=== PATIENT | male | born 1990 | race Two or more races ===

== ENCOUNTER 2019-10-09 14:14 | Emergency (ER) | payer SELFPAY ==
[~2019-10-09] VITALS: Ht 177.8 cm; Wt 97.5 kg
[~2019-10-09 14:14] MED LIST: CYCLOBENZAPRINE10 MG ORAL; IBUPROFEN600 MG ORAL
[2019-10-09 14:25] VITALS: BP 120/77
[2019-10-09] MEDS ORDERED: DiphenhydrAMINE 50mg/ml Inj IVP ONE (14:30)
[2019-10-09] MEDS ORDERED: Ketorolac 30mg Inj IV ONE (14:30)
[2019-10-09] MEDS ORDERED: Metoclopramide 10mg/2ml Inj IVP ONE (14:30)
--- NOTE | 2019-10-09 14:32 | Emergency Room Report ---
History of Present Illness General Chief Complaint: Headache Source: Patient Present Illness HPI Disclaimer: Please note that this report is being documented using [employer] technology. This can lead to erroneous entry secondary to incorrect interpretation by the dictating instrument. HPI: Otherwise healthy 29-year-old male presents for evaluation of headache, fatigue diarrhea and fevers. Symptoms present 2 to 3 days. He denies any known sick contacts. He reports slight cough, subjective fevers, chills, fatigue. He still able to eat and drink though notes a decreased appetite. Denies changes in smell or taste. Reports loose stools over the past 3 days. Reports generalized fatigue. Came in because of a generalized headache without associated vertigo, lightheadedness, vision changes, numbness, tingling, weakness. Denies neck or back pain. Does not endorse any neck stiffness. Denies dysuria, hematuria, vomiting. Denies rash. PMH: Denies PSH: Denies Allergies: Denies Social Hx: Former alcohol and tobacco use. Allergies: Coded Allergies: No Known Allergies (Unverified , 06/27/15) COVID-19 Screening Contact w/high risk pt: No Recent Travel to affected area: No Experienced COVID-19 symptoms?: No COVID-19 Testing performed FENCE [employer]ER: No Nursing Documentation-PMH Past Medical History: No Stated History Review of Systems All Other Systems: negative except mentioned in HPI Physical Exam Vital Signs Date Time Temp Pulse Resp B/P (MAP) Pulse Ox O2 Delivery O2 Flow Rate FiO2 10/09/19 14:18 101.7 116 18 120/77 (91) 96 Room Air General: Awake and alert, febrile, HEENT: NC/AT. EOMI. PERRLA. Visual holcomb are full. No nystagmus. Facial expressions are symmetrical. No facial droop. Cardiovascular: Tachycardic. S1 and S2 normal. No murmur appreciated Resp: Normal work of breathing. No cough, wheezing or crackles appreciated Abdomen: Abdomen is soft, nondistended. Nontender Skin: Intact. No abrasions, laceration or rash over the exposed skin MSK: Normal tone and bulk. Moving all extremities. No obvious deformity. There is no drift in the upper or lower extremities bilaterally. Neuro: Awake and alert. Mentating appropriately. Facial expression symmetrical. No dysarthria. The patient has intact speech with good repetition , comprehension. Fund of knowledge is full. Medical Decision Making Diagnostic Impression: Primary Impression: Suspected 2019 novel coronavirus infection Additional Impression: Headache ER Course Is a 29-year-old male presenting for evaluation of generalized headache, fatigue and diarrhea for the past 3 days. Differential includes was not limited to viral syndrome, flu Unser, COVID-19, pneumonia, bronchitis, gastritis , gastroenteritis, food poisoning, dehydration, electrolyte abnormality. No trauma was reported. The patient is neurologically intact. Little clinical concern for occupying mass, intracranial bleed, meningitis or other significant intracranial pathology at this time. Do not believe he requires emergent imaging at this time. Patient arrives febrile and tachycardic but no acute distress. He will be given IV fluids, Toradol, Reglan and Benadryl as part of migraine cocktail. 1630: Labs were obtained and have returned within normal limits. No significant white count or changes on the differential. Chemistry within normal limits. The patient received IV fluids and a migraine cocktail and reports resolution of his symptoms. Fever resolved. Heart rate improved. Questionable patchy opacities on x-ray; will cover with azithromycin as a precaution for possible pneumonia. He is stable for outpatient follow-up. We discussed isolation precautions as he is suspected to have COVID-19 or another viral syndrome causing his symptoms today. He will be continued on Tylenol and Zofran. Provided resources for outpatient testing. Discussed reasons to return to the emergency department. He understands and agrees with treatment plan. Laboratory Tests Test 10/09/19 14:40 White Blood Count 4.9 K/UL (4.8-10.8) Red Blood Count 5.19 M/UL (4.70-6.10) Hemoglobin 16.0 G/DL (14.2-18.0) Hematocrit 46.6 % (42.0-52.0) Mean Corpuscular Volume 90 FL (80-99) Mean Corpuscular Hemoglobin 30.9 PG (27.0-31.0) Mean Corpuscular Hemoglobin Concent 34.4 G/DL (32.0-36.0) Red Cell Distribution Width 12.0 % (11.6-14.8) Platelet Count 209 K/UL (150-450) Mean Platelet Volume 7.9 FL (6.5-10.1) Neutrophils (%) (Auto) 38.2 % (45.0-75.0) L Lymphocytes (%) (Auto) 47.8 % (20.0-45.0) H Monocytes (%) (Auto) 12.9 % (1.0-10.0) H Eosinophils (%) (Auto) 0.2 % (0.0-3.0) Basophils (%) (Auto) 1.0 % (0.0-2.0) Sodium Level 139 MMOL/L (136-145) Potassium Level 3.9 MMOL/L (3.5-5.1) Chloride Level 101 MMOL/L (98-107) Carbon Dioxide Level 29 MMOL/L (21-32) Anion Gap 9 mmol/L (5-15) Blood Urea Nitrogen 8 mg/dL (7-18) Creatinine 1.1 MG/DL (0.55-1.30) Estimated Glomerular Filtration Rate > 60 mL/min (>60) Glucose Level 107 MG/DL (74-106) H Calcium Level 8.5 MG/DL (8.5-10.1) Chest X-Ray Diagnostic Results Chest X-Ray Diagnostic Results : Chest X-Ray Ordered: Yes # of Views/Limited/Complete: 1 View Indication: Shortness of Breath EP Interpretation: Yes Interpretation: other - Possible bilateral vascular congestion versus early infiltrate. No pneumothorax Impression: Other - possible early infiltrate or vascular congestion Electronically Signed by: Electronically signed by Dr. Minor Leavitt Last Vital Signs Date Time Temp Pulse Resp B/P (MAP) Pulse Ox O2 Delivery O2 Flow Rate FiO2 10/09/19 14:18 101.7 116 18 120/77 (91) 96 Room Air Disposition: HOME, SELF-CARE Condition: Improved Scripts Azithromycin* (ZITHROMAX*) 250 Mg Tablet 250 MG ORAL DAILY, #6 TAB 0 Refills Take two tables once daily for 1 day, then one tablet once daily for 4 days. Prov: Minor Leaivtt MD 10/09/19 Ondansetron Odt* (ZOFRAN ODT*) 4 Mg Tab.rapdis 4 MG BC EVERY 6 HOURS PRN for Nausea & Vomiting, #10 TAB 0 Refills Prov: Minor Leavitt MD 10/09/19 Acetaminophen* (TYLENOL EXTRA STRENGTH*) 500 Mg Tablet 500 MG ORAL Q8H PRN for Prn Headache/Temp > 101, #30 TAB 0 Refills Prov: Minor Leavitt MD 10/09/19 Minor Leavitt MD Oct 09, 2019 14:32
[2019-10-09] MEDS ORDERED: ONDANSETRON ODT4 MG BC (14:51)
[2019-10-09] MEDS ORDERED: IBUPROFEN600 M1 ORAL ×2 (14:51)
[2019-10-09] MEDS ORDERED: TYLENOL EXTRA500 MG ORAL (14:51)
[2019-10-09 15:21] LABS: EOSINOPHILS % (AUTO) 0.2 % (0.0-3.0); HEMATOCRIT 46.6 % (42.0-52.0); LYMPHOCYTES % (AUTO) 47.8 % (20.0-45.0); MEAN CORPUSCULAR VOLUME 90 FL (80-99); MONOCYTES % (AUTO) 12.9 % (1.0-10.0); NEUTROPHILS % (AUTO) 38.2 % (45.0-75.0); PLATELET COUNT 209 K/UL (150-450); RED BLOOD COUNT 5.19 M/UL (4.70-6.10); WHITE BLOOD COUNT 4.9 K/UL (4.8-10.8)
[2019-10-09 15:42] LABS: ANION GAP 9 mmol/L (5-15); BLOOD UREA NITROGEN 8 mg/dL (7-18); CALCIUM 8.5 MG/DL (8.5-10.1); CARBON DIOXIDE 29 MMOL/L (21-32); CHLORIDE 101 MMOL/L (98-107); CREATININE 1.1 MG/DL (0.55-1.30); POTASSIUM 3.9 MMOL/L (3.5-5.1); SODIUM 139 MMOL/L (136-145)
--- NOTE | 2019-10-09 16:08 | Diagnostic Imaging Report ---
Indication: Cough Technique: One view of the chest Comparison: none Findings: Inspiration is suboptimal. Questionable patchy infiltrates are seen at the lung bases. The heart size is normal. Impression: Questionable basilar patchy infiltrates, could indicate pneumonia if real. Correlate with clinical findings
[2019-10-09 16:09] VITALS: BP 124/79
[2019-10-09] MEDS ORDERED: ZITHROMAX250 MG ORAL (16:25)
[2019-10-09 16:40] VITALS: BP 124/79
== END 2019-10-09 16:40 | disposition home or self-care (01) ==
LOC: EMR 14:36
DX: R51 Headache (principal); R53.83 Other fatigue; R19.7 Diarrhea, unspecified; R50.9 Fever, unspecified; F10.21 Alcohol dependence, in remission; Z87.891 Personal history of nicotine dependence
CPT/HCPCS: 36415; 71045; 80048; 85025; 96361; 96374; 96375; 99284; J2765; J7030